=== PATIENT | female | born 1960 | race Caucasian/White ===

== ENCOUNTER 2020-02-18 14:06 | Emergency (ER) | payer BC, OTHER ==
[2020-02-18 14:31] VITALS: O2SAT 99
--- NOTE | 2020-02-18 14:54 | ED.PDOC ---
History of Present Illness - General Chief Complaint: Lower Extremity Injury Stated Complaint: dropped bucklet on leg Time Seen by Provider: 02/18/20 14:51 Source: patient, RN notes reviewed, Vital Signs reviewed, family - Daughter Exam Limitations: no limitations - History of Present Illness Initial Comments: Patient is a 59-year-old white female who presents with complaints of right calf pain and bruising. 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 She had almost immediate bruising over though she put ice on it. Patient is able to ambulate without difficulty. The pain is throbbing in nature. Worse with palpation or walking. Better with rest and ice. It is moderate in i ntensity. There is no radiation of the pain. It is constant. The pain waxes and wanes. Occurred: just prior to arrival Severity: moderate Pain Location: lower extremity - Right medial calf Method of Injury: direct blow Improving Factors: cold therapy, immobilization, rest Worsening Factors: movement Loss of Consciousness: no loss of consciousness Associated Symptoms (Fall): denies symptoms Allergies/Adverse Reactions: Allergies Sulfa Antibiotics Allergy (Verified 02/18/20 14:33) Home Medications: Ambulatory Orders Estradiol [Estrace] 1 mg PO BEDTIME 12/06/14 Hydrochlorothiazide 25 mg PO BEDTIME 12/06/14 Metoprolol Succinate [Metoprolol Succinate ER] 12.5 mg PO BEDTIME 12/06/14 Past Medical History (General) - Patient Medical History Hx Seizures: No Hx Stroke: No Hx Dementia: No Hx Asthma: No Hx of COPD: No Hx Cardiac Disorders: No Hx Congestive Heart Failure: No Hx Pacemaker: No Hx Hypertension: Yes Hx Thyroid Disease: No Hx Diabetes: No Hx Gastroesophageal Reflux: No Hx Renal Disease: No Hx Cancer: No Hx of HIV: No Hx Hepatitis C: No Hx MRSA: Yes MRSA Source:: back Surgical History: appendectomy, Hysterectomy - Vaccination History Hx Tetanus, Diphtheria Vaccination: Yes Hx Influenza Vaccination: No Hx Pneumococcal Vaccination: No - Social History Hx Tobacco Use: Yes - Half pack a day Hx Chewing Tobacco Use: No Hx Alcohol Use: No Hx Substance Use: No Hx Substance Use Treatment: No Hx Depression: No Feels Threatened In Home Enviroment: No Feels Threatened In a Relationship: No Hx Physical Abuse: No Hx Emotional Abuse: No Hx Suspected Abuse: No - Female History Patient is a Female of Child Bearing Age (10 -59 yrs old): No - Triage Comment ED Triage Comment: The patient was alert and oriented times 4 and walked into the Triage room. She complained of an injury to her right calf and had noted bruising. She had pain upon palpation to the site but had no pain while at rest. She had no other obvious signs of injury and no other noted complaints. Family Medical History - Family History Mother Family History: Unknown Physical Exam - Physical Exam General Appearance: Alert, Comfortable, Well Developed, Well Groomed, Well Hydrated, Well Nourished Head Injury: no evidence of injury Eye Exam: bilateral normal ENT Exam: hearing grossly normal, no evidence of ENT injury Neck Exam: non-tender, full range of motion, normal alignment Cardiovascular/Respiratory: regular rate, rhythm, normal peripheral pulses, no JVD, normal breath sounds, no respiratory distress Gastrointestinal/Abdominal: normal bowel sounds, non tender, soft Back Exam: normal inspection, no CVA tenderness, no vertebral tenderness Extremity Exam: normal range of motion, other - Ice patient with bruising of the left medial calf. There is mild tenderness to palpation. There is no fluctuance. There are no cords felt. Negative Homans' sign. Distal pulses are 2+ DP/PT. 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 - Bristol Coma Score Best Eye Response (Bristol): (4) open spontaneously Best Verbal Response (Wendy): (5) oriented Best Motor Response (Wendy): (6) obeys commands Wendy Total: 15 Progress - Progress Progress: Differential diagnosis: Hematoma, fibular fracture, DVT, contusion among others. 02/18/20 14:55 Patient with an on-the-job injury, traumatic in nature, of the right medial mid calf. She does have ecchymosis consistent with a small hematoma. There are no cords felt. She has negative Homans' sign. She has good distal pulses. Patient able to ambulate without difficulty and there is no tenderness to palpation midline of the posterior calf. Therefore, I highly doubt a fracture or a DVT. Plan on discharge home with follow-up with PCP. I discussed this plan of care with the patient and her daughter and they voiced understanding and agreement. I recommended RICE. Wilder Elias M.D. #[id number] Departure - Departure Clinical Impression: Traumatic contusion, Hematoma Calf pain Qualifiers: Laterality: right Qualified Code(s): M79.661 - Pain in right lower leg Time of Disposition: 15:01 Disposition: Discharge to Home or Self Care Condition: Good Departure Forms: ED Discharge - Pt. Copy, Patient Portal Self Enrollment Instructions: DI for Leg Pain, How to Make a Hot/Cold Rice Pack, Contusion (DC) Diet: resume usual diet Activity: increase activity as tolerated Referrals: Toi Gonzalez MD [Primary Care Provider] - 1 Week Home Medications: Ambulatory Orders Estradiol [Estrace] 1 mg PO BEDTIME 12/06/14 Hydrochlorothiazide 25 mg PO BEDTIME 12/06/14 Metoprolol Succinate [Metoprolol Succinate ER] 12.5 mg PO BEDTIME 12/06/14
[2020-02-18 15:10] VITALS: BP 158/87; TEMP 97.2
== END 2020-02-18 15:08 | disposition home or self-care (01) ==
LOC: ER 14:06
DX: S80.11XA Contusion of right lower leg, initial encounter (principal); I10 Essential (primary) hypertension; Z87.891 Personal history of nicotine dependence; Z79.899 Other long term (current) drug therapy; Z88.2 Allergy status to sulfonamides; W20.8XXA Other cause of strike by thrown, projected or falling object, initial encounter; Y99.0 Civilian activity done for income or pay; Y92.239 Unspecified place in hospital as the place of occurrence of the external cause